=== PATIENT | female | born 1995 | race Caucasian/White ===

== ENCOUNTER 2018-07-21 11:47 | Emergency (ER) | payer SELFPAY ==
[~2018-07-21] VITALS: Ht 165.1 cm; Wt 65.8 kg
[2018-07-21] MEDS ORDERED: VALA500 PO (13:26)
== END 2018-07-21 14:10 | disposition home or self-care (01) ==
LOC: ER 11:47
DX: B01.9 Varicella without complication (principal)
CPT/HCPCS: 99282